=== PATIENT | male | born 2000 | race Caucasian/White ===

== ENCOUNTER 2020-02-08 12:39 | Outpatient (CLI) | payer BC, SELFPAY ==
[2020-02-08 13:56] LABS: SARS-CoV-2 Ag Negative (Negative)
== END 2020-02-08 12:40 | disposition home or self-care (01) ==
PROVIDERS: PCP Family Medicine; Visit Provider Nurse Practitioner
DX: R09.89 Other specified symptoms and signs involving the circulatory and respiratory systems (principal); Z20.828 Contact with and (suspected) exposure to other viral communicable diseases
CPT/HCPCS: 87426

== ENCOUNTER 2020-05-28 06:50 | Emergency (ER) | payer BC, SELFPAY ==
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
[2020-05-28 06:45] VITALS: BP 107/69; PULSE 107; RESP 17; TEMP 36.5; O2SAT 100
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
[2020-05-28 07:50] VITALS: BP 132/79; PULSE 104; RESP 16; O2SAT 99
[2020-05-28] MEDS: TETANUS,DIPHTHERIA,AC PERTUSSIS ADULT (0.5 ML) BOOSTRIX IM (07:51)
--- NOTE | 2020-05-28 07:51 | PC.NURSE ---
pt refuses iv, iv meds for pain and nausea. made aware.
[2020-05-28 09:14] VITALS: BP 126/75; PULSE 105; RESP 16; O2SAT 99
[2020-05-28 09:59] VITALS: BP 125/81; PULSE 90; RESP 16; O2SAT 97
== END 2020-05-28 10:01 | disposition home or self-care (01) ==
PROVIDERS: Emergency Provider General Practice
DX: S00.83XA Contusion of other part of head, initial encounter (principal); S00.531A Contusion of lip, initial encounter; S09.90XA Unspecified injury of head, initial encounter; Z23 Encounter for immunization; Y04.2XXA Assault by strike against or bumped into by another person, initial encounter
CPT/HCPCS: 70450; 70486; 90471; 90715; 99284

== ENCOUNTER 2022-09-06 16:57 | Outpatient (RCR) | payer OTHER, SELFPAY ==
--- NOTE | 2022-09-06 17:43 | PTOPEVAL1 ---
Assessment and note entered by JT File, PT Evaluation Information Assessment Status Evaluation Diagnosis cervical radiculopathy Onset 08/30/22 Subjective Information patient reports he has had pain in the neck and R shoulder blade for a few years. he reports as of the last 6 months his symptoms have been increased . he reports he cant think of any change in activity for the last 6 months. he reports he has pain in the neck and down the R shoulder blade. 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 he reports he has increased pain/symptoms with throwing activities, pulling the car door open, and looking over his R shoulder. he reports he is taking gabapentin for the past few days but reports no noticeable difference. he reports he has not taken his mm relaxor that was also prescribed. he reports he has not had any imaging. patient reports he likes to work out and play volleyball. Reported Pain Level Pain Score 4: Self Report Assessment PT Clinical Summary mr. rosenberg is a 22 yo male who presents to skilled PT services for evaluation and treatment of side neck and R upper back pain. he presents today with signs and symptoms of radicular R lower cervical pain from facet hypertrophy. he is limited in rom, and has pain and paresthesias into the R scapula/upper back. he would benefit from continued skilled PT to address his objective/ functional deficits and progress toward a return to his prior level functional activity performance /quality of life. Plan of Care Interventions Electrical Stimulation,Hot Pack/Cold Pack,Manual Therapy,Mechanical Traction,Neuro Re-education, Patient/Caregiver Educati,Therapeutic Activities, Therapeutic Exercise PT Services Indicated Yes Treatment Frequency and 2x weekly for 8 visits Duration These treatments will address the objective and functional deficits as defined above. The patient will be advanced safely and appropriately in order for the patient to progress towards his/her prior level of function. Additional exercises will be introduced and as well as a comprehensive home exercise program upon discharge, if needed, ?to ensure carryover of functional gains achieved in the clinic. This treatment plan has been reviewed and agreement upon by the patient.
--- NOTE | 2022-09-06 17:43 | OPREHPOC ---
Outpatient Therapy Plan of Care This is a Multidisciplinary Plan of Care that may contain components documented by all disciplines (PT, OT, and ST.) PT Problem 1 PT Problem #1 Knowledge Deficit PT Goal 1 Goal 1. independent and compliant with HEP to improve tolerance for continued skilled PT and exercises Target Visit 4 PT Problem 2 PT Problem #2 Pain PT Goal 1 Goal 1. 2/10 pain or less in the neck and R UT at worst in the last week Target Visit 8 PT Problem 3 PT Problem #3 Impaired Range of Motion PT Goal 1 Goal 1. improve bilateral cervical arom rotation to 75 degrees or better 2. improve bilateral cervical sidebending arom to 40 degrees or better 3. no pain or symptoms with arom cervical mobility to end range Target Visit 8 PT Problem 4 PT Problem #4 Impaired Functional Mobil PT Goal 1 Goal 1. patient to participate in pulling and pushing UE activities without increased pain/symptoms 2. reduction of all radicular symptoms into the R upper back/shoulder 3. NDI to display 4% or less functional deficits 4. patient to return to throwing and recreational activities without limitations Target Visit 8
== END 2022-09-11 13:45 | disposition home or self-care (01) ==
LOC: CHSPT 16:57
PROVIDERS: PCP Family Medicine
DX: M54.12 Radiculopathy, cervical region (principal)
CPT/HCPCS: 97014; 97110; 97161; G0283